=== PATIENT | female | born 1965 | race Caucasian/White ===

== ENCOUNTER 2017-10-20 09:52 | Emergency (ER) | payer BC, MEDICARE, MEDICAID ==
[2017-10-20 10:14] VITALS: BP 139/80
--- NOTE | 2017-10-20 10:32 | UC ---
Respiratory Complaint HPI - HPI Summary HPI Summary: 51yo WF h/o CVA on ASA only, HTN and hypothyroidism c/o right sided CP with cough especially with deep inspiration. Denies f/c or sputum. Pt states she has chronic back pain uses a walker and has been more sedentary than usual but no recent travel or long drives. - History of Current Complaint Chief Complaint: UCChestPain Stated Complaint: CHEST PAIN Time Seen by Provider: 10/20/17 10:03 Hx Obtained From: Patient Hx Last Menstrual Period: post menopausal Onset/Duration: Sudden Onset Severity Initially: Moderate Severity Currently: Moderate - Allergies/Home Medications Allergies/Adverse Reactions: Allergies Allergy/AdvReac Type Severity Reaction Status Date / Time Aloe Allergy Rash Verified 10/20/17 10:17 Codeine AdvReac Severe SOB, Verified 10/20/17 10:17 THROAT CLOSES Home Medications: Home Medications Atorvastatin* [Lipitor 80 MG*] 40 mg PO 0800 10/20/17 [History Confirmed ] Glucosamine-Chondroitin [Glucosamine & Chondroitin 500-400 mg] 1 cap PO DAILY [History Confirmed 10/20/17] Hydrocodone-Acetaminophen [[place] 5-325 mg] 1 tab PO Q4HR PRN 10/20/17 [History Confirmed 10/20/17] PMH/Surg Hx/FS Hx/Imm Hx Endocrine History: Hypothyroidism Cardiovascular History: Hypertension Neurological History: CVA Other History Of: Anticoagulant Therapy - ASA AND PLAVIX but Plavix d/c'd 2yrs ago - Surgical History Surgical History: Yes Surgery Procedure, Year, and Place: X 3;. ORBITAL DECOMPRESSION ;. GASTRIC BY-PASS;. RIGHT KNEE REPLACEMENT,. L5/S1 HEMILAMINECTOMY x2,. MULTIPLE KNEE ARTHROSCOPIES,. LEFT KNEE PARTIAL REPLACEMENT,. TONSILECTOMY, - Family History Known Family History: Positive: Diabetes - father, brother, Other - CVA, brother @ 42 y.o. - Social History Alcohol Use: Rare Substance Use Type: None Substance Use Comment - Amount & Last Used: Manish Smoking Status (MU): Former Smoker Type: Cigarettes Amount Used/How Often: 1/4 PPD Length of Time of Smoking/Using Tobacco: 20 Years Have You Smoked in the Last Year: Yes Household Exposure Type: Cigarettes - Immunization History Most Recent Influenza Vaccination: DECLINES Most Recent Tetanus Shot: UPDATE Most Recent Pneumonia Vaccination: DECLINES Review of Systems Constitutional: Negative Skin: Negative Eyes: Negative ENT: Negative Respiratory: Cough, Other - pleuritic CP Cardiovascular: Negative Gastrointestinal: Negative Genitourinary: Negative Motor: Negative Neurovascular: Negative Musculoskeletal: Negative Neurological: Negative Psychological: Negative All Other Systems Reviewed And Are Negative: Yes Physical Exam Triage Information Reviewed: Yes Appearance: No Pain Distress Vital Signs: Initial Vital Signs Temp 36.4 C 10/20/17 10:02 Pulse 81 10/20/17 10:02 Resp 22 10/20/17 10:02 BP 139/80 10/20/17 10:02 Pulse Ox 98 10/20/17 10:02 Eye Exam: Normal ENT Exam: Normal Dental Exam: Normal Neck exam: Normal Neck: Positive: 1 Respiratory Exam: Other - Decreased BS on right mid lung> left Respiratory: Positive: Other: - right upper anterior chest pain with bria inspiration. Negative: Crackles, Rhonchi, Stridor, Wheezing Cardiovascular Exam: Normal Abdominal Exam: Normal Musculoskeletal Exam: Normal Neurological Exam: Normal Psychological Exam: Normal Skin Exam: Normal UC Diagnostic Evaluation - Laboratory O2 Sat by Pulse Oximetry: 98 Respiratory Course/Dx - Course Course Of Treatment: EKG neg for STT changes, CXR neg for PNA but sent pt to ER given h/o CVA in oct 2015 on ASA only with sedentary lifestyle so advised pt to go to ED to r/o PE. Ambulance called. Spoke to Dr Astudillo in ED. - Differential Dx/Diagnosis Provider Diagnoses: Acute right pleuritic CP Discharge - Discharge Plan Condition: Stable Disposition: ADMITTED TO [facility] Discharge Disposition Comment: Ambulance called to transport pt to ED Additional Instructions: Pt agreed to the plan to go to ED to r/o PE
--- NOTE | 2017-10-20 10:53 | RAD ---
HISTORY: Pleuritic chest pain COMPARISONS: January 18, 2018 VIEWS: 4: Frontal dual-energy and lateral views of the chest. FINDINGS: CARDIOMEDIASTINAL SILHOUETTE: The cardiomediastinal silhouette is normal. ERASMO: The erasmo are normal. PLEURA: The costophrenic angles are sharp. No pleural abnormalities are noted. LUNG PARENCHYMA: The lungs are clear. ABDOMEN: The upper abdomen is clear. There is no subphrenic gas. BONES AND SOFT TISSUES: No bone or soft tissue abnormalities are noted. OTHER: None. IMPRESSION: NO ACTIVE CARDIOPULMONARY DISEASE.
== END 2017-10-20 11:18 | disposition short-term general hospital (02) ==
LOC: UCEAST 09:52
DX: R07.89 Other chest pain (principal); I10 Essential (primary) hypertension; R05 Cough; M54.9 Dorsalgia, unspecified; G89.29 Other chronic pain; Z91.09 Other allergy status, other than to drugs and biological substances; Z72.89 Other problems related to lifestyle; Z79.82 Long term (current) use of aspirin; Z86.73 Personal history of transient ischemic attack (TIA), and cerebral infarction without residual deficits; Z88.5 Allergy status to narcotic agent
CPT/HCPCS: 71046; 93005; 99213; G0463

== ENCOUNTER → 2017-10-20 11:30 | Emergency (ER) | payer BC, MEDICARE, MEDICAID ==
[~2017-10-20 11:30] MED LIST: Iohexol 350* (CONTRAST) 500 ML MDV IV ONE; oxyCODONE/Acetamin 5/325 MG* TAB PO ONE
[2017-10-20 12:01] LABS: ABS Basophils 0 10^3/ul (0-0.2); ABS Eosinophils 0.2 10^3/ul (0-0.6); ABS Lymphocytes 1.3 10^3/ul (1.0-4.8); ABS Monocytes 0.6 10^3/ul (0-0.8); ABS Neutrophils 4.7 10^3/ul (1.5-7.7); ABS Nucleated RBC 0 10^3/ul; Eosinophil % 2.9 % (0-6); Hematocrit 43 % (35-47); Lymphocyte % 19.3 % (25-47); Mean Corpuscular HGB Conc 33 g/dl (31-36); Mean Corpuscular Hemoglobin 31 pg (27-31); Mean Corpuscular Volume 95 fL (80-97); Mean Platelet Volume 10 um3 (7.4-10.4); Nucleated Red Blood Cells % 0.1; Platelet Count 260 10^3/ul (150-450); Red Blood Count 4.46 10^6/ul (4.0-5.4); Red Cell Distribution Width 16 % (10.5-15); White Blood Count 6.9 10^3/ul (3.5-10.8)
[2017-10-20 12:18] LABS: EGFR Non-African American 75.3 (>60)
--- NOTE | 2017-10-20 14:13 | RAD ---
INDICATION: Pleuritic RIGHT chest pain. COMPARISON: October 20, 2017 chest radiograph. TECHNIQUE: Multidetector CT images were obtained from the lung apices to the upper abdomen with 84 mL Omnipaque 350 IV contrast. Pulmonary angiogram protocol. Multiplanar reformation including with maximum intensity projection. REPORT: Negative for pulmonary infiltrate, focal pulmonary lesion, pleural effusion, pneumothorax. Negative for thoracic lymphadenopathy. Upper normal heart size. Negative for pericardial effusion. Normal diameter thoracic aorta with minimal atherosclerotic plaque. Negative for aortic dissection. No filling defects are identified from the main to the subsegmental pulmonary arteries to indicate presence of a pulmonary embolism. Images through the upper abdomen are remarkable for postsurgical change of Boni-en-Y gastric bypass. Subtle cortical buckle fracture of the RIGHT third rib noted anteriorly reference axial images 22 and 23 of 66. IMPRESSION: 1. No evidence for pulmonary embolism. 2. Subtle cortical buckle fracture of the RIGHT third rib anteriorly likely accounts for the patient's pleuritic RIGHT chest pain. Negative for associated pleural effusion or pneumothorax.
[2017-10-20 15:07] VITALS: BP 144/88
--- NOTE | 2017-10-20 22:15 | ED ---
Rasheeda Albert Julia, scribed for Andrea Okeefe MD on 10/20/17 at 1203 . HPI Chest Pain - HPI Summary HPI Summary: This patient is a 51 year old F [facility]IB[facility] to [facility] with a chief complaint of constant R anterior chest pain since the evening of 10/18/17. The patient rates the pain 5/10 in severity. Symptoms aggravated by deep breaths and coughs. Symptoms alleviated by nothing. Patient denies fever, chills, or recent illness. Patient has had back pain for the past 8 weeks and right sided weakness secondary to TIA. - History of Current Complaint Time Seen by Provider: 10/20/17 11:33 Hx Obtained From: Patient Hx Last Menstrual Period: post menopausal Onset/Duration: Started Days Ago Timing: Constant Pain Intensity: 5 Pain Scale Used: 0-10 Numeric Chest Pain Location: Right Anterior Aggravating Factor(s): Deep Breaths, Other: - cough Alleviating Factor(s): Nothing - Additional Pertinent History Primary Care Physician: JADE - Allergy/Home Medications Allergies/Adverse Reactions: Allergies Allergy/AdvReac Type Severity Reaction Status Date / Time Aloe Allergy Rash Verified 10/20/17 10:17 Codeine AdvReac Severe SOB, Verified 10/20/17 10:17 THROAT CLOSES Home Medications: Home Medications Atorvastatin* [Lipitor*] 40 mg PO 0800 10/20/17 [History Confirmed 10/20/17] HYDROcodone/ACETAMIN 5-325 MG* [[place] 5-325 TAB*] 1 tab PO Q4H PRN 10/20/17 [ History Confirmed 10/20/17] Levothyroxine TAB* [Synthroid TAB*] 150 mcg PO QAM 10/20/17 [History Confirmed 10/20/17] Methocarbamol [Robaxin-750 MG TAB] 1,500 mg PO QID 10/20/17 [History Confirmed 10/20/17] Valsartan TAB* [[place] TAB*] 80 mg PO DAILY 10/20/17 [History Confirmed 10/20/17 ] PMH/Surg Hx/FS Hx/Imm Hx Endocrine/Hematology History: Reports: Hx Anticoagulant Therapy - ASA AND PLAVIX but Plavix d/c'd 2yrs ago, Hx Thyroid Disease - hypo, Hx Anemia Denies: Hx Blood Disorders, Hx Blood Transfusions, Hx Bone Marrow Disease, Hx Diabetes, Hx Systemic Lupus Erythematosus, Hx Sickle Cell Disease, Hx Unexplained Bleeding, Other Endocrine/Hematological Disorders Cardiovascular History: Reports: Hx Hypertension - ON MEDS Denies: Hx Aneurysm, Hx Angina, Hx Angioplasty, Hx Auto Implanted Cardiovert Defib, Hx Cardiac Arrest, Hx Cardiomegaly, Hx Congenital Heart Disease, Hx Congestive Heart Failure, Hx Coronary Artery Disease, Hx Deep Vein Thrombosis, Hx Embolism, Hx Hypercholesterolemia, Hx Hypotension, Hx Pacemaker/ICD, Hx Peripheral Vascular Disease, Hx Rheumatic Fever, Hx Syncope, Hx Valvular Heart Disease, Other Cardiovascular Problems/Disorders Respiratory History: Denies: Hx Asthma, Hx Chronic Obstructive Pulmonary Disease (COPD) History: Denies: Hx Dialysis, Hx Renal Disease Musculoskeletal History: Reports: Hx Back Problems, Other Musculoskeletal History - DJD, 2004 HEMILAMINECTOMY X2, 2003 RIGHT KNEE ARTH Sensory History: Reports: Hx Cataracts - bilaterally, Hx Contacts or Glasses Denies: Hx Eye Injury, Hx Eye Prosthesis, Hx Glaucoma, Hx Legally Blind, Hx Macular Degeneration, Hx Vision Problem, Hx Deafness, Hx Hearing Aid, Hx Hearing Problem Opthamlomology History: Reports: Hx Cataracts - bilaterally, Hx Contacts or Glasses Denies: Hx Eye Injury, Hx Eye Prosthesis, Hx Glaucoma, Hx Legally Blind, Hx Macular Degeneration, Hx Vision Problem Neurological History: Reports: Hx Headaches, Hx Transient Ischemic Attacks (TIA) , Other Neuro Impairments/Disorders - PRESENT PROBLEM : FELL IN KITCHEN - TWISTED -SEVERE NERVE PAIN DOWN R SIDE Denies: Hx Dementia, Hx Developmental Delay, Hx Migraine, Hx Nerve Disease, Hx Seizures, Hx Spinal Cord Injury Psychiatric History: Reports: Hx Depression Denies: Hx Panic Disorder - Surgical History Surgery Procedure, Year, and Place: X 3;. ORBITAL DECOMPRESSION ;. GASTRIC BY-PASS;. RIGHT KNEE REPLACEMENT,. L5/S1 HEMILAMINECTOMY x2,. MULTIPLE KNEE ARTHROSCOPIES,. LEFT KNEE PARTIAL REPLACEMENT,. TONSILECTOMY, Hx Anesthesia Reactions: No Infectious Disease History: No Infectious Disease History: Denies: Traveled Outside the [place] in Last 30 Days - Family History Known Family History: Positive: Diabetes - father, brother, Other - CVA, brother @ 42 y.o. - Social History Alcohol Use: Occasionally Substance Use Type: Reports: Prescribed Substance Use Comment - Amount & Last Used: Robaxin Hx Tobacco Use: Yes Smoking Status (MU): Former Smoker Type: Cigarettes Amount Used/How Often: 1/4 PPD Length of Time of Smoking/Using Tobacco: 20 Years Have You Smoked in the Last Year: Yes Review of Systems Negative: Fever, Chills Negative: Erythema Negative: Sore Throat Positive: Chest Pain Negative: Shortness Of Breath, Cough Negative: Abdominal Pain, Vomiting, Nausea Negative: dysuria, hematuria Negative: Myalgia, Edema Negative: Rash Neurological: Other - negative - dizziness All Other Systems Reviewed And Are Negative: Yes Physical Exam - Summary Physical Exam Summary: Constitutional: Well-developed, Well-nourished, Alert. (-) Distressed Skin: Warm, Dry HENT: Normocephalic; Atraumatic Eyes: Conjunctiva normal Neck: Musculoskeletal ROM normal neck. (-) JVD, (-) Stridor, (-) Tracheal deviation Cardio: Rhythm regular, rate normal, Heart sounds normal; Intact distal pulses; The pedal pulses are 2+ and symmetric. Radial pulses are 2+ and symmetric. (-) Murmur. There is tenderness to the 2nd R lateral rib. Pulmonary/Chest wall: Effort normal. (-) Respiratory distress, (-) Wheezes, (-) Rales Abd: Soft, (-) Tenderness, (-) Distension, (-) Guarding, (-) Rebound Musculoskeletal: (-) Edema Lymph: (-) Cervical adenopathy Neuro: Alert, Oriented x3 Psych: Mood and affect Normal Triage Information Reviewed: Yes Vital Signs On Initial Exam: Initial Vitals BP 176/99 10/20/17 11:36 Vital Signs Reviewed: Yes - Martha Coma Scale Coma Scale Total: 15 Diagnostics - Vital Signs Vital Signs Temp Pulse Resp BP Pulse Ox 10/20/17 11:39 74 13 99 10/20/17 11:37 97.8 F 75 19 176/99 99 10/20/17 11:36 176/99 - Laboratory Result Diagrams: 10/20/17 11:00 10/20/17 11:00 Lab Statement: Any lab studies that have been ordered have been reviewed, and results considered in the medical decision making process. - CT Chest/Thorax CT Interpretation Completed By: Radiologist - 1. No evidence for pulmonary embolism. 2. Subtle cortical buckle fracture of the RIGHT third rib anteriorly likely accounts for the patient's pleuritic RIGHT chest pain. Negative for associated pleural effusion or pneumothorax. ED Physician has reviewed this report. - EKG 11:36 Cardiac Rate: NL EKG Rhythm: Sinus Rhythm - at 72 BPM EKG Interpretation: reveals no STEMI present Chest Pain Course/Dx - Diagnoses Provider Diagnoses: Rib fracture Discharge - Discharge Plan Condition: Stable Disposition: HOME Prescriptions: oxyCODONE/Acetamin 5/325 MG* [Percocet 5/325 TAB*] 2 tab PO Q6H PRN #30 tab MDD 8 PRN Reason: Pain Scale 6-10 Patient Education Materials: Rib Fracture (ED) Referrals: Carlos Terrell DO [Primary Care Provider] - Additional Instructions: Patient will be discharged with a prescription or Oxycodone and instructed to follow up with PCP in 2-3 days. The patient is agreeable with this plan. RETURN TO THE EMERGENCY DEPARTMENT FOR CHANGING OR WORSENING SYMPTOMS. The documentation as recorded by the Rasheeda brown Julia accurately reflects the service I personally performed and the decisions made by Maldonado mae Jerry, MD.
== END | disposition home or self-care (01) ==
LOC: ED 11:30
DX: S22.31XA Fracture of one rib, right side, initial encounter for closed fracture (principal); X58.XXXA Exposure to other specified factors, initial encounter; Y92.9 Unspecified place or not applicable; R07.81 Pleurodynia; Z86.73 Personal history of transient ischemic attack (TIA), and cerebral infarction without residual deficits; Z87.891 Personal history of nicotine dependence; Z82.3 Family history of stroke; Z88.5 Allergy status to narcotic agent
CPT/HCPCS: 36415; 71275; 80053; 83605; 84484; 85025; 93005; 99283; A9270-GY; Q9967

== ENCOUNTER → 2019-05-15 08:58 | Day surgery (SDC) | payer BC, MEDICARE, MEDICAID ==
--- NOTE | 2019-05-01 07:36 | HP ---
CC: Dr. Terrell * PREOPERATIVE HISTORY AND PHYSICAL: DATE OF ADMISSION: 05/15/19 This patient is scheduled for same-day surgery admission by Dr. Greco on 05/15/19. DATE OF OFFICE VISIT: 04/30/19 ATTENDING SURGEON: Arnel Greco MD * (dictated by Fariha Ann NP). CHIEF COMPLAINT: Symptomatic gallstones. HISTORY OF PRESENT ILLNESS: The patient is a 53-year-old female who presented to [facility] for evaluation of symptomatic cholelithiasis. The patient described an episode of severe right upper quadrant pain and epigastric pain approximately 1 year ago which lasted for a day. She went to her primary care doctor and was sent for an ultrasound which revealed a small gallstone. She was recommended to have evaluation by a general surgeon, but preferred to try medication and was started on ursodiol. She felt well until December of this year when she had another episode of right upper quadrant pain accompanied with nausea, vomiting, and reflux. She restarted the ursodiol. Her symptoms were exacerbated by bending over. She is concerned about recurrent symptoms and states that all the women in her family have had their gallbladders removed. Dr. Greco reviewed her ultrasound, examined the patient, discussed the findings with her and has recommended laparoscopic cholecystectomy. In addition, the patient is status post open Boni-en-Y gastric bypass approximately [address] Greco described the nature of the surgical procedure, the rationale for the procedure, the relevant risks and benefits, and today, I reviewed the expected postoperative care and recovery. The patient has had a chance to ask questions and stated that she understands the information and is satisfied with the answers given to her questions. She will sign surgical consent on the day of surgery. PAST MEDICAL HISTORY: Significant for obesity, hypertension, CVA in 2016 with no current symptoms, chronic back pain, Graves disease age 19. PAST SURGICAL HISTORY: Open gastric bypass in 2000; eye surgery for bilateral orbital decompression for Graves in 1987, bilateral total knee replacement at [place], laminectomy, section x3. MEDICATIONS: 1. Methocarbamol 750 mg 2 tablets daily in the morning. 2. Lexapro 20 mg p.o. daily in the morning. 3. Relacore Extra 2 tablets daily in the morning. 4. Losartan 50 mg p.o. daily in the morning. 5. Levothyroxine 175 mcg p.o. daily in the morning. 6. Aspirin 325 mg p.o. daily and I have instructed the patient to hold it for 5 days preoperatively. 7. Hydrocodone/acetaminophen 5 mg/325 mg 1 to 2 tablets every 4 hours as needed for pain, prescribed by Dr. Terrell and this is used for chronic back pain. 8. Glucosamine chondroitin 1 tablet p.o. daily. 9. Biotin 1000 mcg p.o. daily. ALLERGIES: CODEINE has caused rash and throat swelling, but she can tolerate hydrocodone. She is also allergic to aloe. SOCIAL HISTORY: She lives with her male partner. She is a former smoker. Occasionally, consumes alcohol. Denies the use of other substances. FAMILY HISTORY: Many of the female relatives have had their gallbladders removed. She denies any anesthesia complications, bleeding tendencies, or clotting disorders in the family that she is aware of. REVIEW OF SYSTEMS: Constitutional: No fevers, chills, excessive fatigue, or weight loss. Endocrine: No diabetes; she is on thyroid replacement with history of Graves disease in the 20s. Hematologic: No easy bruising or bleeding. Respiratory: No dyspnea on exertion. No chronic cough. Cardiovascular: No anginal chest pain or palpitations. Gastrointestinal: Episodes of nausea and vomiting related to gallbladder attacks. No GI bleeding. No diarrhea or chronic constipation. Genitourinary: No dysuria. Musculoskeletal: Chronic lower back pain. Normal strength and tone in extremities. Neurologic: No headaches, blurred vision, or areas of focal weakness or numbness. General: No history of deep vein thrombosis or pulmonary embolism. No history of anesthesia complications and she has never received a blood transfusion. PHYSICAL EXAMINATION GENERAL SURVEY: The patient is a 53-year-old obese female, well developed, in no acute distress. VITAL SIGNS: Height 63 inches, weight 190 pounds, body mass index 33.7. Blood pressure 124/82, pulse 80 and regular, respiratory rate 16, temperature 97.7 tympanic. HEENT: Benign, anicteric sclerae. NECK: Supple. No cervical lymphadenopathy. LUNGS: Breath sounds bilaterally clear and equal. HEART: Regular rate and rhythm. No murmur or rubs appreciated. ABDOMEN: Obese, active bowel sounds. Soft and nondistended. Mild tenderness in right upper quadrant. Negative Silva sign. No obvious masses, organomegaly , or evidence of ventral hernias. Well-healed surgical incision in the midline. PELVIC: Exam deferred. RECTAL: Exam deferred. EXTREMITIES: Warm without edema or skin ulceration. NEUROLOGIC: Alert and oriented x3. Steady gait. SKIN: Warm, dry, and intact, anicteric. IMPRESSION: Symptomatic cholelithiasis. PLAN: Same-day surgery admission to Dr. Greco's service on 05/15/19 , for laparoscopic cholecystectomy. FARIHA ANN, RESOURCE MANAGER [id number]/CPS #: [id number] [place]
[~2019-05-15 08:58] MED LIST changes: +Buffered Lidocaine 1% SYRIN* 1 ML/SYRINGE INTRADERM ONE; +Bupivacaine 0.25% W/EPI* 10 ML SDV ONE; +Dexamethasone IV* 4 MG/ML 1 ML (4 MG) ONE; +DiMENhydriNATE IV* 50 MG/ML VIAL IV PUSH PRN; +DiMENhydriNATE IV* 50 MG/ML VIAL ONE; +Glycopyrrolate IV* 0.2 MG/ML 1 ML VIAL ONE; +HYDROcodone/ACETAMIN 5-325 MG* 1 TAB ONE; +HYDROcodone/ACETAMIN 5-325 MG* 1 TAB PO PRN; +HYDROmorphone INJ1* 1 MG/ML SYRINGE ONE; -Iohexol 350* (CONTRAST) 500 ML MDV IV ONE; +Ketorolac INJ* 30 MG/ML 1 ML VIAL ONE; +Lactated Ringers 1000 ML Bag* 1,000 ML IV SCH; +Midazolam* 1 MG/ML 5 ML VIAL (5 MG) ONE; +Naloxone* 0.4 MG/ML 1 ML VIAL IV PRN; +Neostigmine Methylsulfate* 1 MG/ML 10 ML VIAL (1 mg/ml) ONE; +Ondansetron INJ* 2 MG/ML VIAL IV PRN; +Ondansetron INJ* 2 MG/ML VIAL ONE; +Propofol* 10 MG/ML 20 ML BTL ONE; +Rocuronium* 10 MG/ML VIAL ONE; +Scopolamine 1.5 mg* PATCH ONE; +Scopolamine 1.5 mg* PATCH TRANSDERM PRN; +Scopolamine PATCH Remove* 1 NOTE MISC PATCH OFF ONE; +ceFAZolin 2 GM in NS PREMIX(*) 2 GM/100 ML BAG IVPB ONE; +fentaNYL* 50 MCG/ML 2 ML VIAL (100 MCG VIAL) ONE; -oxyCODONE/Acetamin 5/325 MG* TAB PO ONE
--- NOTE | 2019-05-15 15:12 | OP ---
Operative Report - Blank - Operative Report Date of Operation: 05/15/19 Note: Brief Operative Note Preop Dx: symptomatic cholelithiasis Postop Dx: same Procedure: laparoscopic cholecystectomy Anesthesia:LANA Surgeon: Angus Telegraphic Typewriter Operator: LADONNA Ray; ARCELIA Schneider Fluids: 1000 ml RL EBL: < 50 ml Specimen: gallbladder Drains: none Findings: dictated
[2019-05-15] MEDS: fentaNYL* 50 MCG/ML 2 ML VIAL (100 MCG VIAL) IV PRN ×4 (15:19→15:34)
[2019-05-15] MEDS: HYDROmorphone INJ1* 1 MG/ML SYRINGE IV PRN ×5 (15:44→16:41)
[2019-05-15 17:47] VITALS: BP 159/90
--- NOTE | 2019-05-15 23:00 | OP ---
CC: Primary Care Doctor, Carlos Terrell DO * DATE OF OPERATION: 05/15/19 - [facility] DATE OF : 63 SURGEON: Arnel Greco MD ASSISTANTS: 1. LADONNA Perez. 2. LADONNA Schneider student. PRE-OP DIAGNOSIS: Symptomatic cholelithiasis. POST-OP DIAGNOSIS: Symptomatic cholelithiasis. OPERATIVE PROCEDURE: Laparoscopic cholecystectomy. ESTIMATED BLOOD LOSS: Less than 50 cc. FLUIDS: Crystalloid fluid given, 1 L. SPECIMEN: Gallbladder. DRAINS: None. DESCRIPTION OF PROCEDURE: The patient was identified in the preoperative area and marked. Consent was signed. She was then taken to the operating room and placed on the operating table in supine position. Preoperative antibiotics were given. Sequential devices were placed in bilateral lower extremities. General anesthesia was induced. The patient's abdomen was prepped and draped in standard surgical fashion. A time-out was performed. Folds of the umbilicus were elevated anteriorly and a Veress needle inserted into the abdominal cavity, which was then allowed to insufflate to a pressure of 15 mmHg. The patient tolerated the insufflation well. Periumbilical 5 mm trocar was then inserted. The laparoscope was inserted through this. This is an Optiview insertion. Review of the Veress needle showed that it was in the veil of the omentum at the midline incision. It did not appear to be violating any intestine, but it was difficult to see the lateral aspect where the Veress needle was. For this reason, we placed a 5-mm trocar laterally and also the 12 mm trocar in the subxiphoid area. Checking through these incisions, it did not appear the Veress needle violated the intestine and it was then removed. Review of the abdomen showed a normal-appearing liver. Gallbladder was dilated , but without evidence of thickening or gangrene. There was no free fluid in the abdomen. Large attachments to the anterior abdominal wall with omentum that obscured a good view of the Boni-en-Y gastric bypass. The small bowel was not dilated. Attention was then turned towards the gallbladder. After repositioning of the table, the fundus was grasped and elevated above the liver. The infundibular region was identified and another 5-mm trocar was inserted in the right upper quadrant. We grasped the infundibular region and retracted towards right lower quadrant exposing the cystic duct as well as giving us a critical view. The peritoneum of the medial aspect of the gallbladder was taken with electrocautery. The lateral aspect was similarly taken. The cystic artery and cystic duct were isolated, doubly clipped, and ligated. Then, the gallbladder was removed from its liver bed and placed in endoscopic retrieval bag. Review of the cystic duct stump and cystic artery stump showed no bleeding or bile. I did place a gauze in the abdomen to collect some of the blood that had spilled from the dissection of the lateral peritoneum. We used cautery to gain hemostasis of the liver bed. The gauze was then removed. Gallbladder was then removed in its endoscopic retrieval bag after dilating the subxiphoid port site. This was passed off as specimen. Review of the abdomen again showed no enteric contents. Hemostasis was excellent. Table was repositioned back to neutral. The abdomen was allowed to collapse and trocars were removed under direct vision and all 4 skin incisions were reapproximated with 4-0 Monocryl subcuticular sutures, followed by Steri-Strips and sterile dressing. [id number]/[facility] #: [id number] [facility]CH[facility]ATRIC CENTERAlireza
== END | disposition home or self-care (01) ==
LOC: OR 08:58
PROVIDERS: ATTEND Surgery
DX: K81.1 Chronic cholecystitis (principal); Z98.84 Bariatric surgery status; I10 Essential (primary) hypertension; Z86.73 Personal history of transient ischemic attack (TIA), and cerebral infarction without residual deficits
CPT/HCPCS: 88304; A9270-GY; J0690; J1100; J1170; J1240; J1885; J2250; J2405; J2704; J2710; J3010